=== PATIENT | male | born 1980 | race Caucasian/White ===

== ENCOUNTER 2018-07-20 13:12 | Outpatient (CLI) | payer BC, OTHER ==
--- NOTE | 2018-07-20 15:01 | RAD ---
PA AND LATERAL VIEWS CHEST: Date: 07/20/18 HISTORY: Dyspnea. FINDINGS: Comparison made with exam of 03/28/15. The heart size is normal. The lungs are expanded without focal areas of consolidation, pneumothoraces , or pleural effusions. No acute osseous abnormalities are seen. IMPRESSION: No radiographic evidence of acute cardiopulmonary process. POS: [facility]
== END 2018-07-20 13:13 | disposition home or self-care (01) ==
LOC: RAD 13:12
PROVIDERS: ATTEND Internal Medicine Pulmonary Disease
DX: R06.00 Dyspnea, unspecified (principal)
CPT/HCPCS: 71046

== ENCOUNTER 2018-12-30 14:17 | Outpatient (CLI) | payer BC ==
--- NOTE | 2018-12-30 14:48 | RAD ---
LUMBAR SPINE 3 VIEWS: Date: 12/30/18 HISTORY: Low back pain. FINDINGS/IMPRESSION: No fracture, subluxation, or bony destruction seen. Mild degenerative changes are present in the lowe r lumbar spine. POS: [facility]
--- NOTE | 2018-12-30 15:03 | RAD ---
THORACIC SPINE SERIES 3 VIEWS: Date: 12/30/18 HISTORY: Back pain. FINDINGS: Vertebral bodies are normal in height. The disc spaces all appear fairly well preserved. Pedicles are intact. IMPRESSION: Unremarkable thoracic spine series. POS: [facility]
== END 2018-12-30 14:18 | disposition home or self-care (01) ==
LOC: RAD-FRANK 14:17
PROVIDERS: ATTEND Nurse Practitioner Family
DX: M54.40 Lumbago with sciatica, unspecified side (principal); M54.6 Pain in thoracic spine; M54.5 Low back pain; M47.816 Spondylosis without myelopathy or radiculopathy, lumbar region
CPT/HCPCS: 72072; 72100

== ENCOUNTER 2019-01-29 10:39 | Outpatient (CLI) | payer BC ==
--- NOTE | 2019-01-29 10:59 | RAD ---
BENDING LATERAL PROJECTIONS OF THE LUMBAR SPINE Images: 3 total images INDICATION: Low back pain with right-sided radicular symptoms. COMPARISON: December 30, 2018 lumbar spinal radiographs FINDINGS: Disc and facet joints: There is mild disc degenerative disease seen at L4-5. There is moderate disc d egenerative disease at L5-S1. Fracture: None. Alignment: There is retrolisthesis of L5 on S1 with extension. This reduces in the neutral and flexio n positioning. Prevertebral soft tissues: Normal IMPRESSION: Moderate disc degenerative disease at L5-S1 with mild abnormal translational motion.
== END 2019-01-29 10:40 | disposition home or self-care (01) ==
LOC: TBSIIMAG 10:39
PROVIDERS: ATTEND Neurological Surgery
DX: M54.5 Low back pain (principal); M51.37 Other intervertebral disc degeneration, lumbosacral region
CPT/HCPCS: 72100

== ENCOUNTER 2019-02-17 14:11 | Outpatient (CLI) | payer BC ==
--- NOTE | 2019-02-17 16:08 | MRI ---
MRI LUMBAR SPINE WITHOUT CONTRAST: 02/17/19 COMPARISON: None. HISTORY: Lumbar radiculopathy, back pain with right lower extremity radiculopathy/numbness. TECHNIQUE: Multiplanar and multisequence MRI imaging of the lumbar spine obtained without contrast. FINDINGS: There is mild increased STIR signal at the level of the inferior end plate of L5 vertebral body which likely represents edema associated with a Schmorl's node or degenerative change. Mild inferior end p late fracture cannot be fully excluded but appears much less likely. On the basis of five lumbar type vertebral bodies, the conus medullaris terminates at L1. T12-L1: No significant central canal or neural foraminal stenosis. L1-2: Mild disc desiccation and disc space narrowing. No significant central canal or neural foramina l stenosis. L2-3: Mild bilateral facet hypertrophy with no significant central canal or neural foraminal stenosis . L3-4: There is disc desiccation. No significant central canal or neural foraminal stenosis. L4-5: There is disc desiccation and mild bilateral facet hypertrophy with no significant central seamus l or neural foraminal stenosis. L5-S1: There is disc space narrowing and disc desiccation. There is a left paracentral disc protrusio n causing significant left lateral recess stenosis. There is mild bilateral facet hypertrophy. There is mild/moderate left neural foraminal stenosis. The visualized retroperitoneal structures appear grossly unremarkable. IMPRESSION: Left paracentral disc protrusion at L5-S1 with associated left lateral recess stenosis. POS: [facility]
== END 2019-02-17 14:12 | disposition home or self-care (01) ==
LOC: BICMRI 14:11
PROVIDERS: ATTEND Family Medicine
DX: M51.17 Intervertebral disc disorders with radiculopathy, lumbosacral region (principal); M48.07 Spinal stenosis, lumbosacral region
CPT/HCPCS: 72148